=== PATIENT | female | born 1990 | race Caucasian/White ===

== ENCOUNTER 2020-02-24 22:58 | Emergency (ER) | payer OTHER ==
[~2020-02-24] VITALS: Ht 160 cm; Wt 61.7 kg
[2020-02-25 02:05] LABS: BASOPHILS 0.7 % (0.0-2.0); EOSINOPHILS 1.4 % (0.0-3.0); HEMATOCRIT 29.8 % (37.0-47.0); HEMOGLOBIN 9.6 gm/dL (12.0-15.0); LYMPHOCYTES 23.6 % (24.0-44.0); MCH 24.4 pg (26.0-34.0); MCHC 32.1 g/dL (28.0-37.0); MCV 75.9 fL (80.0-100.0); MONOCYTES 10.3 % (1.0-8.0); PLATELET COUNT 312 thou/uL (150-400); RBC 3.92 mil/uL (4.20-5.00); RDW 16.1 % (10.5-14.5); WBC 7.8 thou/uL (4.0-11.0)
[2020-02-25 02:13] LABS: CALCIUM 8.7 mg/dL (8.5-10.1); POTASSIUM 3.6 mmol/L (3.5-5.1)
[2020-02-25] MEDS ORDERED: BACTRIM DS TAB1 EACH PO (03:22)
[2020-02-25] MEDS ORDERED: KEFLEX500 M1 PO (03:22)
[2020-02-25] MEDS ORDERED: MOBIC15 MG PO (03:22)
[2020-02-25 03:26] VITALS: BP 98/50
== END 2020-02-25 03:30 | disposition home or self-care (01) ==
LOC: ER 22:58
PROVIDERS: Emergency Medicine
DX: L03.115 Cellulitis of right lower limb (principal); L98.9 Disorder of the skin and subcutaneous tissue, unspecified; Z98.890 Other specified postprocedural states